=== PATIENT | male | born 1935 | race Caucasian/White ===

== ENCOUNTER 2021-11-12 09:17 | Outpatient (CLI) | payer MEDICARE | END 2021-11-12 09:18 | disposition home or self-care (01) | LOC: ULT 09:17 | PROVIDERS: ATTEND Internal Medicine Nephrology | DX: N18.30 Chronic kidney disease, stage 3 unspecified (principal) | CPT/HCPCS: 76770 ==

== ENCOUNTER 2021-12-10 10:42 | Outpatient (CLI) | payer MEDICARE | END 2021-12-10 10:43 | disposition home or self-care (01) | LOC: TBSIIMAG 10:42 | PROVIDERS: ATTEND Anesthesiology Pain Medicine | DX: M48.062 Spinal stenosis, lumbar region with neurogenic claudication (principal); M51.36 Other intervertebral disc degeneration, lumbar region; M48.061 Spinal stenosis, lumbar region without neurogenic claudication | CPT/HCPCS: 72148 ==